=== PATIENT | male | born 1970 | race Caucasian/White ===

== ENCOUNTER 2018-01-19 22:34 | Emergency (ER) | payer MEDICAID ==
[~2018-01-19] VITALS: Ht 182.9 cm; Wt 77.1 kg
[~2018-01-19 22:34] MED LIST: DOXY-216 PO
[2018-01-19 22:56] VITALS: BP 127/84
[2018-01-20] MEDS ORDERED: HYDROcodone-ACET 10/325MG TAB PO ONE (01:30)
[2018-01-20] MEDS ORDERED: cefTRIAXone SOD 1,000 MG VL IM ONE (01:30)
[2018-01-20] MEDS ORDERED: TETANUS-DIPTH-ACEL PERTUSSIS 0.5ML SYRG IM ONE (01:30)
[2018-01-20] MEDS ORDERED: LIDOCAINE 2%HCL (LOCAL ANESTH.) INJ 10ml MDV IJ ONE ×2 (01:45→02:30)
[2018-01-20] MEDS ORDERED: LIDOCAINE 2% (LOCAL ANESTH.) PF 5ml SDV ONE (01:45)
[2018-01-20] MEDS ORDERED: HYDROcodone-ACET 5/325MG TAB PO ONE (03:15)
== END 2018-01-20 03:22 | disposition home or self-care (01) ==
LOC: ER 22:41
DX: S62.633B Displaced fracture of distal phalanx of left middle finger, initial encounter for open fracture (principal); F17.210 Nicotine dependence, cigarettes, uncomplicated; W23.0XXA Caught, crushed, jammed, or pinched between moving objects, initial encounter; Y93.89 Activity, other specified; Y99.8 Other external cause status; Y92.89 Other specified places as the place of occurrence of the external cause
CPT/HCPCS: 12002; 73130; 90471; 90715; 96372; 99284; J0696; J2001

== ENCOUNTER 2018-01-23 22:31 | Emergency (ER) | payer OTHER, MEDICAID ==
[~2018-01-23] VITALS: Ht 180.3 cm; Wt 81.6 kg
[2018-01-23 22:49] VITALS: BP 99/77
[2018-01-24] MEDS ORDERED: KETOROLAC TROMETH 30 MG/ML 1ML VIAL IV ONE (00:15)
[2018-01-24] MEDS ORDERED: cefTRIAXone 1GM/10ml IVPUSH 10 ML IV ONE (00:15)
[2018-01-24] MEDS ORDERED: cefTRIAXone SOD 1,000 MG VL ONE (00:47)
[2018-01-24 01:01] LABS: Basophils # (auto) 0.1 uL; Basophils % (auto) 0.8 % (0.0-2.0); Eosinophils # (auto) 0.4 uL; Hematocrit 44.2 % (41.0-53.0); Lymphocytes # (auto) 2.1 uL; Lymphocytes % (auto) 29.8 % (10.0-50.0); Mean Corpuscular Hemoglobin 30.9 pg (28.0-32.0); Mean Corpuscular Hgb Conc. 33.8 g/dL (32.0-36.0); Mean Corpuscular Volume 91.2 fL (80.0-100.0); Monocytes # (auto) 0.7 uL; Monocytes % (auto) 9.4 % (0.0-12.0); Neutrophils # (auto) 3.8 uL; Nucleated Red Blood Cells % 0.1 %; Platelet Count (auto) 323 10^3/uL (140-450); Red Blood Cells 4.85 10^6/uL (4.5-5.90); Red Cell Distribution Width 12.8 % (11.8-14.3); White Blood Cell 7.1 10^3/uL (4.4-10.8)
[2018-01-24 01:25] LABS: CRP High Sensitivity 0.58 mg/dL (< 0.3); Calcium 8.7 mg/dL (8.5-10.1)
[2018-01-24 01:41] LABS: Alanine Aminotransferase 37 U/L (16-61); Albumin 3.6 g/dL (3.4-5.0); Anion Gap 9 (5-15); Aspartate Aminotransferase 23 U/L (15-37); BUN/Creatinine Ratio 19.2; Blood Urea Nitrogen 20 mg/dL (7-18); Carbon Dioxide 25 mmol/L (21-32); Chloride 105 mmol/L (98-107); GFR African American 99 mL/min; GFR Non-African American 82 mL/min; Glucose 97 mg/dL (74-106); Potassium 4.4 mmol/L (3.5-5.1); Sodium 139 mmol/L (136-145)
[2018-01-24 01:48] LABS: Alkaline Phosphatase 88 U/L (45-117); Bilirubin, Total 0.3 mg/dL (0.2-1.0); Total Protein 6.9 g/dL (6.4-8.2)
== END 2018-01-24 03:59 | disposition home or self-care (01) ==
LOC: ER 22:43
DX: S62.633D Displaced fracture of distal phalanx of left middle finger, subsequent encounter for fracture with routine healing (principal); L03.012 Cellulitis of left finger; F17.210 Nicotine dependence, cigarettes, uncomplicated; F12.10 Cannabis abuse, uncomplicated; F15.10 Other stimulant abuse, uncomplicated; X58.XXXD Exposure to other specified factors, subsequent encounter
CPT/HCPCS: 36415; 73130; 80053; 83605; 85025; 85652; 86141; 96374; 96375; 99285; J0696; J1885